=== PATIENT | male | born 1965 | race Caucasian/White ===

== ENCOUNTER → 2023-04-09 08:46 | Outpatient (BNVA) | payer MEDICAID, SELFPAY | PROVIDERS: Visit Provider Podiatrist Foot & Ankle Surgery | DX: M21.611 Bunion of right foot | CPT/HCPCS: 73630 ==

== ENCOUNTER 2025-01-20 20:00 | Outpatient (CLI) | payer MEDICAID, SELFPAY | END 2025-01-20 20:01 | disposition home or self-care (01) | LOC: SLEEP 01-21 05:20 | PROVIDERS: Referring Provider Nurse Practitioner Family; Visit Provider Internal Medicine Pulmonary Disease | DX: G47.33 Obstructive sleep apnea (adult) (pediatric) (principal) | CPT/HCPCS: 95811 ==